=== PATIENT | male | born 1975 | race Caucasian/White ===

== ENCOUNTER 2018-12-28 11:29 | Emergency (ER) | payer OTHER ==
[~2018-12-28] VITALS: Ht 198.1 cm; Wt 100.7 kg
[2018-12-28 11:34] VITALS: Ht 198.1 cm; Wt 100.7 kg
[2018-12-28 13:13] VITALS: BP 143/88
== END 2018-12-28 13:13 | disposition home or self-care (01) ==
LOC: ED 11:29
DX: M79.661 Pain in right lower leg (principal)